=== PATIENT | male | born 1935 | race Caucasian/White ===

== ENCOUNTER 2019-07-11 15:30 | Emergency (ER) | payer OTHER ==
[~2019-07-11] VITALS: Ht 167.6 cm; Wt 77.1 kg
[2019-07-11 15:38] VITALS: Ht 167.6 cm; Wt 77.1 kg
[2019-07-11 17:50] VITALS: BP 132/54
== END 2019-07-11 17:50 | disposition home or self-care (01) ==
LOC: ED 15:30
DX: S39.012A Strain of muscle, fascia and tendon of lower back, initial encounter (principal); S49.92XA Unspecified injury of left shoulder and upper arm, initial encounter; S89.92XA Unspecified injury of left lower leg, initial encounter; S09.8XXA Other specified injuries of head, initial encounter; V49.9XXA Car occupant (driver) (passenger) injured in unspecified traffic accident, initial encounter; Y93.I9 Activity, other involving external motion; Y92.413 State road as the place of occurrence of the external cause; Y99.8 Other external cause status
CPT/HCPCS: Q0092